=== PATIENT | female | born 1970 | race Caucasian/White ===

== ENCOUNTER 2022-08-27 14:21 | Emergency (ER) | payer OTHER ==
[~2022-08-27] VITALS: Ht 149.9 cm; Wt 77.3 kg
[2022-08-27] MEDS ORDERED: LORazepam 2 MG/ML VIAL IM ONE (15:15)
[2022-08-27 15:30] LABS: BASOPHILS % (AUTO) 0.7 % (0.0-2.0); EOSINOPHILS % (AUTO) 4.2 % (1.0-6.0); HEMATOCRIT 43.2 % (36-46); HEMOGLOBIN 14.4 g/dL (12.0-16.0); LYMPHOCYTES # (AUTO) 1.7 K/uL (1.0-4.8); LYMPHOCYTES % (AUTO) 19.8 % (22.0-44.0); MEAN CORPUSCULAR HEMOGLOBIN 30.3 pg (26.0-34.0); MEAN CORPUSCULAR HGB CONC 33.4 G/dL (31.0-37.0); MEAN CORPUSCULAR VOLUME 91 fL (80-100); MONOCYTES # (AUTO) 0.5 K/uL (0.1-1.0); MONOCYTES % (AUTO) 5.5 % (2.0-9.0); NEUTROPHILS # (AUTO) 5.8 K/uL (1.8-7.7); NEUTROPHILS % (AUTO) 69.8 % (40.0-70.0); PLATELET COUNT (AUTO) 239 K/uL (150-450); RED BLOOD CELL COUNT(AUTO) 4.76 MIL/uL (4.00-5.20); RED CELL DISTRIBUTION WIDTH 13.9 % (11.5-14.5)
[2022-08-27] MEDS ORDERED: SODIUM CHLORIDE 0.9% 1,000 ML IV ONE (15:30)
[2022-08-27 15:39] LABS: ANION GAP 6 mmol/L (8-16); CALCIUM, TOTAL 9.8 mg/dL (8.8-10.5); CARBON DIOXIDE 28 mmol/L (22-29); CHLORIDE 107 mmol/L (98-107); CREATININE 1.12 mg/dL (0.60-1.30); GLOMERULAR FILTR. RATE CALC 51 mL/min (>60); GLUCOSE,RANDOM 106 mg/dL (70-110); POTASSIUM 3.6 mmol/L (3.5-5.1); SODIUM SERUM 141 mmol/L (136-145); UREA NITROGEN, BLOOD 16 mg/dL (7-18)
[2022-08-27 15:45] LABS: ALANINE AMINOTRANSFERASE 18 U/L (12-78); ALKALINE PHOSPHATASE 114 U/L (46-116); ASPARTATE AMINOTRANSFERASE 16 U/L (15-37); BILIRUBIN,TOTAL 0.2 mg/dL (0.1-1.0); TOTAL PROTEIN, SERUM 7.8 g/dL (6.4-8.2)
[2022-08-27] MEDS ORDERED: LORA-1000 PO (16:47)
[2022-08-27 17:19] VITALS: BP 118/86
== END 2022-08-27 17:29 | disposition home or self-care (01) ==
LOC: EMS 14:27
DX: F41.9 Anxiety disorder, unspecified (principal); E11.9 Type 2 diabetes mellitus without complications; F32.9 Major depressive disorder, single episode, unspecified; F43.10 Post-traumatic stress disorder, unspecified; F10.20 Alcohol dependence, uncomplicated; Z88.0 Allergy status to penicillin
CPT/HCPCS: 99284; 80053; 84484; 85025; 36415; 93005; 96372; G0480; J2060

== ENCOUNTER 2024-10-13 17:02 | Emergency (ER) | payer OTHER ==
[~2024-10-13] VITALS: Ht 149.9 cm; Wt 75.0 kg
[~2024-10-13 17:02] MED LIST: LORA-1000 PO
[2024-10-13 17:09] VITALS: BP 119/94; PULSE 85; RESP 16; TEMP 98; O2SAT 98
[2024-10-13] MEDS ORDERED: DULO-114 PO (17:10)
[2024-10-13] MEDS ORDERED: ATOR-2 PO (17:10)
[2024-10-13] MEDS ORDERED: METF-1211 PO (17:10)
[2024-10-13] MEDS ORDERED: BUSP10TA23 PO (17:10)
[2024-10-13] MEDS ORDERED: BETA15OI30 TP (20:05)
[2024-10-13] MEDS ORDERED: CHOL100062 PO (20:05)
[2024-10-13] MEDS ORDERED: EZET10TA57 PO (20:05)
[2024-10-13] MEDS ORDERED: METH2.5T6 PO (20:05)
[2024-10-13] MEDS ORDERED: FOLI-130 PO (20:05)
[2024-10-13] MEDS ORDERED: TRAZ-252 PO (20:05)
[2024-10-13] MEDS ORDERED: CLOB15OI21 TP (20:05)
[2024-10-13] MEDS ORDERED: HYDR30CR3 TP (20:05)
[2024-10-13] MEDS ORDERED: RISA150S2 SQ (20:05)
[2024-10-13] MEDS: IBUPROFEN 600 MG TABLET PO ONE (20:23)
[2024-10-13] MEDS: HYDROCODONE/ACETAMINOPHEN 5-325 MG TABLET PO ONE (20:23)
[2024-10-13] MEDS ORDERED: HYDR-4062 PO (21:05)
[2024-10-13] MEDS ORDERED: IBUP-1554 PO (21:05)
== END 2024-10-13 21:21 | disposition home or self-care (01) ==
LOC: EMS 17:02
DX: S50.02XA Contusion of left elbow, initial encounter (principal); M54.2 Cervicalgia; M34.9 Systemic sclerosis, unspecified; E11.9 Type 2 diabetes mellitus without complications; F32.A Depression, unspecified; F41.9 Anxiety disorder, unspecified; Z88.0 Allergy status to penicillin; Z88.1 Allergy status to other antibiotic agents; Z79.84 Long term (current) use of oral hypoglycemic drugs; Z79.899 Other long term (current) drug therapy; W22.09XA Striking against other stationary object, initial encounter; Y93.89 Activity, other specified; Y92.89 Other specified places as the place of occurrence of the external cause; Y99.8 Other external cause status
CPT/HCPCS: 72040; 82962; 99284; 73070-TC; Z7502; Z7610